=== PATIENT | female | born 1980 | race Two or more races ===

== ENCOUNTER 2020-09-21 12:13 | Emergency (ER) | payer OTHER ==
[~2020-09-21] VITALS: Ht 157.5 cm; Wt 56.7 kg
[2020-09-21] MEDS ORDERED: LAMOTRIGINE100 MG (12:21)
[2020-09-21] MEDS ORDERED: MAXITROL EYE DRO5 ML OP (15:04)
== END 2020-09-21 15:11 | disposition home or self-care (01) ==
LOC: ER 12:13
DX: H57.10 Ocular pain, unspecified eye (principal)